=== PATIENT | male | born 1945 | race Two or more races ===

== ENCOUNTER 2025-04-06 08:16 | Outpatient (CLI) | payer OTHER | END 2025-04-06 08:21 | disposition home or self-care (01) | LOC: RAD 08:16 | DX: I70.0 Atherosclerosis of aorta (principal); M54.51 Vertebrogenic low back pain ==

== ENCOUNTER 2025-04-15 13:53 | Outpatient (CLI) | payer OTHER | END 2025-04-15 14:00 | disposition home or self-care (01) | LOC: MRI 13:53 | DX: M54.51 Vertebrogenic low back pain (principal) | CPT/HCPCS: 72148 ==